=== PATIENT | female | born 1975 | race Caucasian/White ===

== ENCOUNTER 2022-09-27 10:49 | Outpatient (CLI) | payer OTHER, SELFPAY | END 2022-09-27 10:50 | disposition home or self-care (01) | PROVIDERS: PCP Internal Medicine; Visit Provider Internal Medicine | DX: E03.9 Hypothyroidism, unspecified (principal); E78.5 Hyperlipidemia, unspecified; Z13.1 Encounter for screening for diabetes mellitus | CPT/HCPCS: 80061; 82947; 84443 ==

== ENCOUNTER 2022-10-06 07:45 | Outpatient (CLI) | payer OTHER, SELFPAY | END 2022-10-06 07:46 | disposition home or self-care (01) | LOC: NFLDREF 18:11 | PROVIDERS: PCP Internal Medicine; Referring Provider Internal Medicine; Visit Provider Internal Medicine | DX: R73.01 Impaired fasting glucose (principal) | CPT/HCPCS: 82947 ==

== ENCOUNTER 2023-01-11 12:55 | Outpatient (CLI) | payer OTHER, SELFPAY ==
--- NOTE | 2023-01-11 13:20 | CRLHL7_ITS ---
For Patients: As a result of the Century Cures Act, medical imaging exams and procedure reports are released immediately into your electronic medical record. You may view this report before your referring provider. If you have questions, please contact your health care provider. BILATERAL SCREENING MAMMOGRAM WITH COMPUTER-AIDED DETECTION AND TOMOSYNTHESIS TECHNIQUE: CC and MLO views were obtained. These mammographic images have been obtained using full-field digital technique. These mammographic images were interpreted with the benefit of computer-aided detection. Breast Tomosynthesis was used in this interpretation. COMPARISON FILM: 11/18/21, 07/09/19, 04/16/18. FINDINGS: The breasts are heterogeneously dense, which may obscure small masses IMPRESSION: There is no radiographic evidence for malignancy. ASSESSMENT: BI-RADS Category 1: Negative RECOMMENDATION: Routine screening mammogram in 1 year. A lay language report of this examination will be provided to the patient. Puneet Chatman M.D. Diagnostic Radiologist [email or web address] Transcribed: 4:55 p.jean mancilla/Dictated by: Puneet Chatman MD @ 01/12/2023 1:27:00 PM (Electronically Signed)
== END 2023-01-11 12:56 | disposition home or self-care (01) ==
LOC: MAMMO 12:56
PROVIDERS: PCP Internal Medicine; Visit Provider Registered Nurse
DX: Z12.31 Encounter for screening mammogram for malignant neoplasm of breast (principal); R92.2 Inconclusive mammogram
CPT/HCPCS: 77063; 77067

== ENCOUNTER 2023-04-13 14:44 | Outpatient (CLI) | payer OTHER, SELFPAY ==
--- NOTE | 2023-04-13 14:45 | MR_ITS ---
[facility] [address] [facility] [address] Phone:?[phone] Fax:?[phone] Referring Physician Information: Liliane Baptiste M.D. [facility] [address] [facility] [address] Phone:?[phone] Fax:?[phone] Patient:Mariza German D.O.B:?1975 Sex:?Female Phone:?[phone] [facility] MRN:?[id number] Exam Date:?04/13/2023 EXAM: MRI of the LEFT KNEE, without contrast CLINICAL: Left knee effusion with history of prior surgery 7 years ago. COMPARISONS: X-rays dated 04/04/2023. Prior MRI exams including 01/18/2017. TECHNICAL: Multiplanar multisequence MRI of the left knee was obtained. SEDATION: None. CONTRAST: None. FINDINGS: Ligaments: ACL: Advanced mucoid degeneration of the ACL as seen on prior examination, with small complex periligamentous ganglion formation seen along the posterior proximal ACL which is new compared to prior exam. No evidence of ligament disruption. PCL: Intact and unremarkable. MCL: Intact and unremarkable. LCL: Intact and unremarkable. Posterolateral corner: Popliteus, biceps femoris, iliotibial band, and the popliteofibular ligament appear intact. Posteromedial corner: Semimembranosus, pes anserine tendons and posterior oblique ligament appear intact. Extensor mechanism: Patellar tendon: Intact, without tendinopathy. Quadriceps tendon: Intact, without tendinopathy. Retinacula: Medial and lateral retinacula are intact. Patellofemoral joint: Patella: There is high-grade/full-thickness loss involving the medial facet with mild underlying subchondral reactive edema, increased compared to prior examination. There is lateral patellar tilt. Trochlea: No significant chondromalacia. Medial compartment: Medial meniscus: No evidence of discrete meniscal tear or meniscal displacement. Medial cartilage: No significant chondromalacia. Lateral compartment: Lateral meniscus: There is mild increased signal involving the free edge of the body segment on coronal series image 19, only seen on a single image and therefore not completely meeting MRI criteria for tearing. Meniscus otherwise appears intact. Lateral cartilage: Segment of high-grade chondral loss involves the weightbearing lateral femoral condyle on sagittal series 6 images 21-22 and coronal series 8 image 21-23, mildly increased compared to prior exam. Deep chondral fissuring involving the lateral tibial plateau appears similar to prior exam. Otherwise mild chondral thinning of the lateral tibial plateau. Knee joint: Effusion: Large left knee effusion. Intra-articular bodies:?No convincing bodies identified. Popliteal cyst: None. Bones: No suspicious bone marrow signal alteration or fracture line. IMPRESSION: 1. Mild increased signal involving the free edge of the body segment lateral meniscus is only seen on a single image and therefore not completely meeting MRI criteria for tearing, likely reflective of degenerative fraying. Menisci otherwise appear intact. 2. Advanced mucoid degeneration of the ACL with small complex periligamentous cyst formation along the posterior proximal ACL. Ligamentous structures otherwise appear intact. 3. Chondral loss involving the medial patellar facet is increased compared to prior examination, with mild subchondral reactive marrow edema. Chondromalacia involving the lateral compartment is mildly increased compared to prior exam. 4. Large joint effusion. [facility] Electronically signed on 04/14/2023 7:27:00 AM by Yvan Clifton D.O.
== END 2023-04-13 14:45 | disposition home or self-care (01) ==
LOC: MRI 14:45
PROVIDERS: PCP Internal Medicine; Visit Provider Internal Medicine
DX: M25.462 Effusion, left knee (principal); M22.42 Chondromalacia patellae, left knee
CPT/HCPCS: 73721

== ENCOUNTER 2023-04-21 11:36 | Outpatient (CLI) | payer OTHER, SELFPAY | END 2023-04-21 11:37 | disposition home or self-care (01) | LOC: LAB 11:37 | PROVIDERS: PCP Internal Medicine; Visit Provider Physician Assistant Surgical | DX: M17.0 Bilateral primary osteoarthritis of knee (principal); M94.262 Chondromalacia, left knee; M25.462 Effusion, left knee; S83.207A Unspecified tear of unspecified meniscus, current injury, left knee, initial encounter | CPT/HCPCS: 89060 ==

== ENCOUNTER 2023-06-22 08:00 | Outpatient (RCR) | payer OTHER, SELFPAY | END 2023-10-06 11:19 | disposition home or self-care (01) | PROVIDERS: PCP Internal Medicine; Visit Provider Physician Assistant Surgical | DX: M25.562 Pain in left knee (principal); M25.662 Stiffness of left knee, not elsewhere classified; M94.262 Chondromalacia, left knee; Z74.09 Other reduced mobility; R29.898 Other symptoms and signs involving the musculoskeletal system; Z51.89 Encounter for other specified aftercare | CPT/HCPCS: 97110; 97140; 97162 ==

== ENCOUNTER 2024-01-01 10:10 | Outpatient (CLI) | payer OTHER, SELFPAY | END 2024-01-01 10:11 | disposition home or self-care (01) | LOC: NFLDREF 01-03 15:25 | PROVIDERS: PCP Internal Medicine; Referring Provider Internal Medicine; Visit Provider Internal Medicine | DX: E03.9 Hypothyroidism, unspecified (principal) | CPT/HCPCS: 84443 ==

== ENCOUNTER 2025-01-28 07:46 | Outpatient (CLI) | payer OTHER, SELFPAY | END 2025-01-28 07:47 | disposition home or self-care (01) | LOC: NFLDREF 01-29 16:06 | PROVIDERS: PCP Internal Medicine; Referring Provider Internal Medicine; Visit Provider Internal Medicine | DX: E03.9 Hypothyroidism, unspecified (principal); E78.5 Hyperlipidemia, unspecified | CPT/HCPCS: 80061; 84443 ==

== ENCOUNTER 2025-04-04 13:40 | Outpatient (CLI) | payer OTHER, SELFPAY | END 2025-04-04 13:41 | disposition home or self-care (01) | LOC: NFLDREF 13:41 | PROVIDERS: PCP Internal Medicine; Visit Provider Emergency Medicine | DX: R53.83 Other fatigue (principal); E03.9 Hypothyroidism, unspecified | CPT/HCPCS: 84443; 86140 ==

== ENCOUNTER 2025-06-26 11:37 | Emergency (ER) | payer OTHER, SELFPAY ==
[2025-06-26 11:43] VITALS: BP 138/78; PULSE 85; RESP 20; TEMP 36.2; O2SAT 97; BMI 28.2
--- NOTE | 2025-06-26 12:51 | ED.PSYCH ---
HPI - Psych General Date Seen: 06/26/25 Chief Complaint: Psychiatric Problem/Disorder Stated Complaint: Mental health Time Seen by Provider: 06/26/25 12:43 Source: patient Mode of arrival: ambulatory Limitations: no limitations History of Present Illness HPI Narrative: Patient is a 49-year-old female with a history of depression, anxiety, diabetes presenting to the emergency department for concern of her worsening anxiety. She states she has been having increased stress and lability of her mood over the past year. She states she is not coping well and things are getting more to for called. She states she has either crying or angry. Says there has been all stress of home with is dealing with cancer. Due to this she has not been getting to her therapy appointments. She states her medications were last changed in January of this year but she is not feel like they are working. She denies any thoughts of hurting herself or others. Has never attempted suicide before. She states she feels safe at home. No other concerns noted Related Data Home Medications ?Medication ?Instructions ?Recorded ?Confirmed fexofenadine 180 mg tablet 180 mg PO .Daily as needed PRN 09/27/22 04/04/25 sumatriptan succinate 50 mg tablet 50 mg PO .As Needed as needed PRN 09/27/22 04/04/25 melatonin 5 mg capsule 5 mg PO QHS 01/04/24 04/04/25 Previous Rx's ?Medication ?Instructions ?Recorded celecoxib 100 mg capsule (Celebrex) 100 - 200 mg (1 - 2 x 100 mg) PO 04/03/24 BID PRN pain #60 caps bupropion HCl 150 mg tablet,12 hr 150 mg PO BID #180 tabs 01/30/25 sustained-release nicotine 21 mg/24 hr daily 1 patch transdermal QDAY #28 ea 01/30/25 transdermal patch simvastatin 10 mg tablet 10 mg PO QPM #90 tabs 01/30/25 venlafaxine 150 mg 150 mg PO QDAY #90 caps 01/30/25 capsule,extended release 24 hr venlafaxine 75 mg capsule,extended 75 mg PO QDAY #90 caps 01/30/25 release 24 hr levothyroxine 75 mcg tablet 75 mcg PO QDAY #90 tabs 05/02/25 amitriptyline 25 mg tablet 25 mg PO QHS #90 tabs 10/30/25 buspirone 10 mg tablet 10 mg PO BID #60 tabs 06/26/25 Allergies Allergy/AdvReac Type Severity Reaction Status Date / Time penicillin V Allergy Severe Hives Verified 04/04/25 13:12 azithromycin Allergy Mild Vomiting Verified 04/04/25 13:12 erythromycin base Allergy Mild Vomiting Verified 04/04/25 13:12 latex Allergy Mild Rash Verified 04/04/25 13:12 Review of Systems Status of ROS: Reports: 10 or more systems reviewed and unremarkable except as noted in History and below PFSH PFS Medical History Fatigue ?R53.83 - Other fatigue (ICD-10) History of non-Hodgkin's lymphoma ?Z85.72 - Personal history of non-Hodgkin lymphomas (ICD-10) History of depression (2011) ?Z87.59 - Personal history of other complications of , childbirth and the puerperium (ICD-10) ?Z86.59 - Personal history of other mental and behavioral disorders (ICD-10) Surgical History History of carpal tunnel release (2018) ?Z98.890 - Other specified postprocedural states (ICD-10) History of bilateral ligation of fallopian tubes ?Z98.51 - Tubal ligation status (ICD-10) History of arthroscopic knee surgery (2016) ?Z98.890 - Other specified postprocedural states (ICD-10) Family History Sister Thyroid disease Father High cholesterol Diabetes Mother Diabetes Social History Narrative: What is your current living situation?: I presently have a place to live Problems where you live: no known problems In the past 12 months, utilities in danger of being shut off: no In past 12 months, lack of transportation kept you from medical appts, meetings, work, or getting things needed for daily living: no In the past 12 mos, have been you worried that your food would run out before you had money to buy more?: sometimes true In the past 12 mos, the food you bought just didn't last and you didn't have money to buy more?: sometimes true Smoking Status: Current every day smoker Do you use any of these nicotine containing products: None Second hand tobacco smoke exposure: Yes How often does anyone, including family, friends and others, physically hurt you: never How often does anyone, including family, friends and others, insult or talk down to you: decline to answer How often does anyone, including family, friends and others, threaten you with harm: decline to answer How often does anyone, including family, friends and others, scream or curse at you: decline to answer Health Related Social Needs: food insecurity (Z59.41) Exam Narrative: Exam Narrative: Const: Well-nourished, Well-developed, in no distress Eyes: PERRL, no conjunctival injection, and symmetrical lids HENT: Atraumatic external nose and ears. Moist mucous membranes. Neck: Symmetric, trachea midline, No thyromegaly. CVS: RRR, No murmurs or gallops. Peripheral pulses 2+ and equal in all extremities RESP: Unlabored respiratory effort. Clear to auscultation bilaterally. GI: Nontender/Nondistended, No rebound or guarding. MSK:Extremities w/o deformity, Normal Active ROM Skin: Warm, Dry. No rashes or lesions. Neuro: Normal Muscle tone, No focal neurological deficits. Psych: Awake, Alert, & Oriented x3. Appears depressed Const: Vital Signs, click to edit/add: Vital Signs - 24 hr 06/26/25 11:43 Temperature 97.1 F L Pulse Rate [Pulse Oximeter] 85 Respiratory Rate 20 Blood Pressure [Ri ght Upper Arm] 138/78 Pulse Oximetry 97 Oxygen Delivery Me thod Room Air Course Vital Signs Vital signs: Initial Vital Signs Temperature 97.1 F L 06/26/25 11:43 Temperature Source Temporal Artery Scan 06/26/25 11:43 Pulse Rate 85 06/26/25 11:43 Respiratory Rate 20 06/26/25 11:43 Blood Pressure 138/78 06/26/25 11:43 Blood Pressure Mean 98 06/26/25 11:43 Blood Pressure Position Sitting 06/26/25 11:43 Pulse Oximetry 97 06/26/25 11:43 Oxygen Delivery Method Room Air 06/26/25 11:43 Vital Signs Temperature 97.1 F L 06/26/25 11:43 Pulse Rate 85 06/26/25 11:43 Respiratory Rate 20 06/26/25 11:43 Blood Pressure 138/78 06/26/25 11:43 Pulse Oximetry 97 06/26/25 11:43 Oxygen Delivery Method Room Air 06/26/25 11:43 Temperature 97.1 F L 06/26/25 11:43 Pulse Rate 85 06/26/25 11:43 Respiratory Rate 20 06/26/25 11:43 Blood Pressure 138/78 06/26/25 11:43 Pulse Oximetry 97 06/26/25 11:43 Oxygen Delivery Method Room Air 06/26/25 11:43 MDM - Psych MDM Narrative Medical decision making narrative: Patient is a 49-year-old female presenting to the emergency department for stress she and anxiety. She is having no thoughts of suicide, self-harm or harming others. She states she feels safe at home. Based on my talk with her do not believe she has an acute risk at home. We will have her speak to [facility] though. She is agreeable to this After evaluation by the on-call [employer] WAITER/WAITRESS from [facility] she also states she believes the patient is safe for discharge. I did speak about adjusting her medications. Will decrease her Wellbutrin to 100 mg b.i.d. and recommend to start her on Buspar. She I will order this for the patient. I informed her to follow up with her primary care provider. She feels safe for discharge. Discharge Plan Discharge Clinical Impression: Major depressive disorder Qualifiers: Major depression recurrence: unspecified whether recurrent Active/Remission status: currently active Major depression episode severity: mild Qualified Code(s): F32.0 - Major depressive disorder, single episode, mild Patient Disposition: Home, Self-Care Condition: Stable Instructions: Depression (ED) Additional Instructions: I recommend close follow-up with your primary care provider. Per [facility] recommendations decrease your Wellbutrin to 100 mg b.i.d.. Will also start him on BuSpar 10 mg b.i.d. return to emergency department for new or worsening symptoms. Prescriptions: New buspirone 10 mg tablet 10 mg PO BID Qty: 60 0RF No Action melatonin 5 mg capsule 5 mg PO QHS venlafaxine 75 mg capsule,extended release 24hr 75 mg PO QDAY Qty: 90 3RF venlafaxine 150 mg capsule,extended release 24hr 150 mg PO QDAY Qty: 90 0RF bupropion HCl 150 mg tablet sustained-release 12 hr 150 mg PO BID Qty: 180 3RF nicotine 21 mg/24 hr patch 24 hour 1 patch transdermal QDAY Qty: 28 8RF simvastatin 10 mg tablet 10 mg PO QPM Qty: 90 3RF sumatriptan succinate 50 mg tablet 50 mg PO .As Needed as needed PRN Rx Instructions: ONE TAB AT ONSET OF HEADACHE, MAY REPEAT Q2H PRN, MAX 200 MG/24 HRS fexofenadine 180 mg tablet 180 mg PO .Daily as needed PRN celecoxib [Celebrex] 100 mg capsule 100 - 200 mg PO BID PRN (Reason: pain) Qty: 60 0RF levothyroxine 75 mcg tablet 75 mcg PO QDAY Qty: 90 0RF amitriptyline 25 mg tablet 25 mg PO QHS Qty: 90 1RF Follow Up/Referrals: Liliane Baptiste MD [Primary Care Provider, Internal Medicine] Stand Alone Forms: [facility] [place] Info Instructions
== END 2025-06-26 13:14 | disposition home or self-care (01) ==
LOC: ED 13:00
PROVIDERS: Emergency Provider Student in an Organized Health Care Education/Training Program; PCP Internal Medicine
DX: F41.9 Anxiety disorder, unspecified (principal); F32.0 Major depressive disorder, single episode, mild; Z63.79 Other stressful life events affecting family and household; F17.210 Nicotine dependence, cigarettes, uncomplicated
CPT/HCPCS: 99284